=== PATIENT | female | born 1990 | race Caucasian/White ===

== ENCOUNTER 2021-11-18 17:01 | Emergency (ER) | payer BC, SELFPAY ==
--- NOTE | ~2021-11-18 | XR_ITS ---
EXAMINATION: XR chest 2V DATE: 11/18/2021 18:12 INDICATION: Chronic cough TECHNIQUE: frontal and lateral views of the chest were obtained. COMPARISON: None FINDINGS: The lungs are clear with no focal airspace opacities, pulmonary edema, pleural effusion or pneumothor ax. The cardiomediastinal silhouette is normal. Visualized bones and soft tissues are unremarkable. IMPRESSION: 1. No acute cardiopulmonary disease. Reviewed, dictated and finalized at location A.
[2021-11-18 17:20] VITALS: BP 149/76; PULSE 93; RESP 16; TEMP 36.8; O2SAT 100
--- NOTE | 2021-11-18 17:45 | ED.URI ---
HPI - URI/Sore Throat General Chief Complaint: Upper Respiratory Infection Stated Complaint: cough nasal pressure Time Seen by Provider: 11/18/21 17:45 Source: patient, RN notes reviewed and old records reviewed Mode of arrival: ambulatory Limitations: no limitations History of Present Illness HPI Narrative: 31-year-old female presents to [facility] with cough nasal pressure and runny nose for the past 2 months. Patient states she was seen 2 weeks ago and given Doxycycline and she completed dose without improvement in her symptoms. Patient denies any recent fevers, chills or sweats or any body aches,has had COVID immunizations. Patient had negative covid a week and half ago.Patient does not smoke but is exposed to secondary tobacco from spouse. MD elicited complaint: cough, rhinorrhea and sinus pain Onset (ago): month(s) (2) Pain scale (0-10): 2 Description of mucous: clear Able to tolerate fluids by mouth: Yes Treatments prior to arrival: other (Mucinex and Claritin) Related Data Allergies Allergy/AdvReac Type Severity Reaction Status Date / Time clindamycin Allergy Hives Verified 11/18/21 17:28 Review of Systems Review of Systems: CONSTITUTIONAL: Denies fever, chills, or sweats. EYES: Denies visual changes, redness, or discharge. ENT: Positive for rhinorrhea, congestion, no sore throat, or otalgia, sinus pressure CARDIOVASCULAR: Denies chest pain, palpitations, or edema. RESPIRATORY: Positive for cough denies dyspnea. GASTROINTESTINAL: Denies abdominal pain, nausea, vomiting, or diarrhea. GENITOURINARY: Denies dysuria or hematuria. SKIN: Denies rash or itching. MUSCULOSKELETAL: Denies back pain, joint pain, or myalgia. NEUROLOGIC: Denies headache, numbness, or weakness. PSYCHIATRIC: Denies anxiety or depression. All systems reviewed & are unremarkable except as noted in HPI and below PMFSH Social History Social History (Updated 11/22/21 @ 14:03 by Misti Seth NP) Smoking status: Never smoker Alcohol intake: current Alcohol use details: social Substance use type: does not use Living arrangements: with family Gender identity (if verbalized by the patient): Female Exam Narrative: GENERAL: Ill-appearing, well-nourished, and in no acute distress. HEAD: Normocephalic, atraumatic. EYES: PERRLA and EOMI. ENT: Nares pink with clear rhinorrhea no epistaxis. Mucous membranes moist.TM's normal with good light reflex, throat with mild redness no lesions or tonsil swelling, post nasal drainage noted NECK: Supple. no lymphadenopathy CHEST: clear on auscultation. No acute respiratory distress.SAO2 100 % on room air, no dyspnea or tachypnea noted, dry cough noted HEART: Regular rate and rhythm. No murmur heard. Normal peripheral pulses. ABDOMEN: Soft, nontender, nondistended, normal active bowel sounds. EXTREMITIES: Normal range of motion. No edema. SKIN: Warm, dry, no rash. NEURO: No focal deficits. Alert and oriented x3. Course Course Level of Care: Express Care Visit Vital Signs Vital signs: Vital Signs Temperature 36.8 C 11/18/21 17:20 Pulse Rate 93 11/18/21 17:20 Respiratory Rate 16 11/18/21 17:20 Blood Pressure 149/76 H 11/18/21 17:20 Pulse Oximetry 100 11/18/21 17:20 Oxygen Delivery Room Air 11/18/21 17:20 Temperature 36.8 C 11/18/21 17:20 Pulse Rate 93 11/18/21 17:20 Respiratory Rate 16 11/18/21 17:20 Blood Pressure 149/76 H 11/18/21 17:20 Pulse Oximetry 100 11/18/21 17:20 Oxygen Delivery Room Air 11/18/21 17:20 MDM - URI/Sore Throat Differential Diagnosis Differential diagnosis: Likely upper respiratory infection, sinusitis, viral infection, pharyngitis and other (allergic rhinitis) Medical Records Attestation: I reviewed the patient's medical records. Imaging Data Attestation: I personally reviewed and interpreted this imaging study as follows: My impression: normal chest x-ray Radiologist's impression: 11/18/2021 1812 2 view chest xray 1902 sign
--- NOTE | 2021-11-18 19:09 | ED_ITS ---
HPI - URI/Sore Throat General Chief Complaint: Upper Respiratory Infection Stated Complaint: cough nasal pressure Time Seen by Provider: 11/18/21 17:45 Source: patient, RN notes reviewed and old records reviewed Mode of arrival: ambulatory Limitations: no limitations History of Present Illness HPI Narrative: 2-week duration of increased symptoms of cough nasal congestion MD elicited complaint: cough, rhinorrhea and nasal congestion Able to tolerate fluids by mouth: Yes Related Data Allergies Allergy/AdvReac Type Severity Reaction Status Date / Time clindamycin Allergy Hives Verified 11/18/21 17:28 Course Course Level of Care: Express Care Visit Vital Signs Vital signs: Vital Signs Temperature 36.8 C 11/18/21 17:20 Pulse Rate 93 11/18/21 17:20 Respiratory Rate 16 11/18/21 17:20 Blood Pressure 149/76 H 11/18/21 17:20 Pulse Oximetry 100 11/18/21 17:20 Oxygen Delivery Room Air 11/18/21 17:20 Temperature 36.8 C 11/18/21 17:20 Pulse Rate 93 11/18/21 17:20 Respiratory Rate 16 11/18/21 17:20 Blood Pressure 149/76 H 11/18/21 17:20 Pulse Oximetry 100 11/18/21 17:20 Oxygen Delivery Room Air 11/18/21 17:20 MDM - URI/Sore Throat Differential Diagnosis Differential diagnosis: Likely upper respiratory infection, pharyngitis and other (allergic rhinitis) Medical Records Attestation: I reviewed the patient's medical records. Critical Care Time Critical Care Time Critical Care Time: No Discharge Plan Discharge Clinical Impression: Upper respiratory infection Patient Disposition: Home, Self-Care Condition: Stable Instructions: Upper Respiratory Infection (ED) Additional Instructions: Increase fluids especially juices and water [id number]-[id number] cough and cold medicine of your choice for your symptoms Singulair 1 tab daily Steroids as directed--take with food heat to the face 20-30 minutes 4-6 times a day for pain Salt water gargles, throat lozenges or throat sprays as desired Try to avoid exposure to secondhand tobacco was much as possible If your symptoms persist, change or worsen significantly before you can contact your personal physician then please, without delay, go to the emergency department for further evaluation. Follow-up with PCP in 7-10 days or sooner if needed Follow up with PCP soon in regards to your blood pressure which is elevated above threshold for referral. Blood pressure above 120/80 may indicate pre-hyp ertension. Prescriptions: New prednisone 20 mg tablet 20 mg PO BID Qty: 10 0RF montelukast [Singulair] 10 mg tablet 10 mg PO HS Qty: 30 0RF Follow-up/Referrals: Chrystal Gonzalez MD [Primary Care Provider] - Time of Disposition: 19:11 Quality [place] Coma Scale Eyes: Open Verbal: Oriented and Alert Motor: Follows Commands Chris Coma Total Score: 15
== END 2021-11-18 19:26 | disposition home or self-care (01) ==
PROVIDERS: Emergency Provider Registered Nurse; PCP Internal Medicine
DX: J06.9 Acute upper respiratory infection, unspecified (principal); Z77.22 Contact with and (suspected) exposure to environmental tobacco smoke (acute) (chronic)
CPT/HCPCS: 71046; 99213; G0463

== ENCOUNTER 2022-01-05 08:20 | Emergency (ER) | payer BC, SELFPAY ==
[2022-01-05 08:33] VITALS: BP 133/73; PULSE 71; RESP 16; TEMP 37.2; O2SAT 100
--- NOTE | 2022-01-05 08:58 | ED.WOUNDLAC ---
HPI - Wound/Laceration General Chief Complaint: Extremity Injury, Upper Stated Complaint: left thumb lac Time Seen by Provider: 01/05/22 08:58 Source: patient, RN notes reviewed and old records reviewed Mode of arrival: ambulatory Limitations: no limitations History of Present Illness HPI narrative: 31-year-old female presents to the [facility] with a laceration to her left thumb that occurred yesterday. Patient reports that she washed it with warm soapy water and put glue on it. Area underneath the glue is healing. Does have some inflammation and redness surrounding the area. Patient states she had her tetanus 2 years ago when she was bit by dogs. Has full range of motion of the palm. Sensation intact distal to injury with capillary refill under 2 seconds Patient tetanus UTD: Yes (2 years ago) Related Data Home Medications Medication Instructions Recorded Confirmed cyclobenzaprine 5 mg tablet 10 mg PO HS PRN Sleep 01/05/22 01/05/22 Allergies Allergy/AdvReac Type Severity Reaction Status Date / Time clindamycin Allergy Hives Verified 01/05/22 08:42 ibuprofen AdvReac Loss of Verified 01/05/22 08:43 Consciousness Review of Systems Review of Systems: All systems reviewed & are unremarkable except as noted in HPI and below Constitutional: Constitutional: Reports no additional constitutional complaints, Denies chills and Denies fever(s) Eyes: Eyes: Reports no additional eye complaints ENT: Reports system reviewed and no additional complaints, except as documented Cardiovascular: Cardiovascular: Reports no additional cardiovascular complaints Respiratory: Respiratory: Reports no additional respiratory complaints Gastrointestinal: Gastrointestinal: Reports no additional gastrointestinal complaints Musculoskeletal: Musculoskeletal: Reports no additional musculoskeletal complaints Integumentary/Breasts: Skin/Breast: Reports as per HPI Neurologic: Reports system reviewed and no additional complaints, except as documented Psychiatric: Psychiatric: Reports no additional psychiatric complaints Allergic/Immunologic: Allergic/Immunologic: Reports no additional allergic/immunologic complaints [facility] Social History Social History Smoking status: Never smoker Alcohol intake: current Alcohol use details: social Substance use type: does not use Gender identity (if verbalized by the patient): Female Comments At the time of my signature, I reviewed and agree with the nursing past medical, surgical, social, and family history. There is no relevant family history pertinent to the patient complaint. Exam Const: General: healthy appearing, comfortable, no acute distress, well developed, alert and well nourished Nutritional Appearance: well nourished Orientation/consciousness: patient oriented x3 Limitations: no limitations HENMT: Head: normal to inspection Ears: external ears normal Eyes: General: appearance normal, both eyes and all related structures Pupils: Equal, round and reactive pupils present Neck: Neck: normal visual inspection, full ROM, no lymphadenopathy and no meningeal signs Chest: Chest palpation & inspection: normal inspection of the chest Resp: Effort & Inspection: normal respiratory effort and no use of accessory muscles Auscultation: clear to auscultation bilaterally, no crackles, no rales, no rhonchi and no wheezes Cardio: Rate: regular rate Rhythm: regular rhythm GI: GI Palp: Yes Soft to palpation and No Tenderness to palpation present (GI) Back/Spine/Pelvis: Cervical Spine: cervical ROM normal and No Cervical spine tenderness Thoracic/Lumbar Spine: thoracic and lumbar spine normal to inspection and thoraco-lumbar ROM normal Skin: General skin exam: normal color Rashes: no rashes Wounds: no wounds Other: to not cm laceration, healing, surrounding erythema, not circumferential. Glue on top. Neuro: General: pat
== END 2022-01-05 09:10 | disposition home or self-care (01) ==
PROVIDERS: Emergency Provider Nurse Practitioner; PCP Internal Medicine
DX: S61.012A Laceration without foreign body of left thumb without damage to nail, initial encounter (principal); X58.XXXA Exposure to other specified factors, initial encounter
CPT/HCPCS: 99213; G0463

== ENCOUNTER 2022-05-28 13:35 | Emergency (ER) | payer BC, SELFPAY ==
[2022-05-28 13:40] VITALS: BP 138/64; PULSE 71; RESP 16; TEMP 37.3; O2SAT 100
--- NOTE | 2022-05-28 13:57 | ED.URI ---
HPI - URI/Sore Throat General Chief Complaint: Upper Respiratory Infection Stated Complaint: sore throat and chest pains Source: patient and RN notes reviewed History of Present Illness HPI Narrative: 31 yo F presents to urgent care with complaints of left sided chest pressure/congestion x 2 days. Pt reports a productive cough and states when she coughs anything up, it is clear in color. Pt reports her symptoms worse at nighttime. Pt also reports a dry throat and chronic congestion and runny nose. Denies any sore throat, chest pain, dizziness, vomiting, ear pain, or abdominal pain. Pt has been taking an allergy pill daily for several months. Related Data Home Medications Medication Instructions Recorded Confirmed Heart Burn Pill 05/28/22 multivit with minerals-iron 18 tablet PO 05/28/22 05/28/22 mg-folic ac 400 mcg-vit K 25 mcg tablet (Adults Multivitamin) Allergies Allergy/AdvReac Type Severity Reaction Status Date / Time clindamycin Allergy Hives Verified 05/28/22 13:52 Sulfa (Sulfonamide Allergy Unknown Verified 05/28/22 13:53 Antibiotics) ibuprofen AdvReac Loss of Verified 05/28/22 13:52 Consciousness Review of Systems Review of Systems: Pertinent positives and pertinent negatives per HPI. [facility] Social History Social History Smoking status: Never smoker Alcohol intake: current Alcohol use details: social Substance use type: does not use Living arrangements: with family Gender identity (if verbalized by the patient): Female Comments At the time of my signature, I reviewed and agree with the nursing past medical, surgical, social, and family history. There is no relevant family history pertinent to the patient complaint. Exam Narrative: GENERAL: This is a well-nourished, well-developed patient, in no apparent distress. HEAD: normocephalic, atraumatic. EYES: Sclera clear/white. Vision is grossly intact. EARS: External ears normal, auditory canals clear and without drainage. Hearing grossly intact. NOSE: External nose normal with no obvious nasal discharge, nares without redness, no rhinorrhea. THROAT: Mucous membranes moist, posterior pharynx clear. NECK: Neck supple, non-tender without lymphadenopathy, masses or thyromegaly. CARDIOVASCULAR: Regular rate and rhythm without murmurs, gallops, or rubs. RESPIRATORY: Mild wheeze noted in RLL on auscultation. SKIN: warm, intact with no suspicious lesions or rash, good texture and turgor. NEURO: awake, alert, and oriented to person, place and time. There were no obvious focal neurologic abnormalities. Course Course Level of Care: Express Care Visit Vital Signs Vital signs: Vital Signs Temperature 99.2 F 05/28/22 13:40 Pulse Rate 71 05/28/22 13:40 Respiratory Rate 16 05/28/22 13:40 Blood Pressure 138/64 05/28/22 13:40 Pulse Oximetry 100 05/28/22 13:40 Oxygen Delivery Room Air 05/28/22 13:40 Temperature 99.2 F 05/28/22 13:40 Pulse Rate 71 05/28/22 13:40 Respiratory Rate 16 05/28/22 13:40 Blood Pressure 138/64 05/28/22 13:40 Pulse Oximetry 100 05/28/22 13:40 Oxygen Delivery Room Air 05/28/22 13:40 reviewed MDM - URI/Sore Throat MDM Narrative Medical decision making narrative: Take steroids as directed. May use the inhaler every 4-6 hours as needed for coughing. Increase fluids at home. Avoid any and all smoke. May use a humidifier in the bedroom. Increase your Vitamin C. Follow-up with personal physician in 2-5 days. Go to the emergency department with any new or worsening symptoms or if your symptoms do not improve in 24 hours. Differential Diagnosis Differential diagnosis: Likely upper respiratory infection, viral infection and bronchitis Critical Care Time Critical Care Time Critical Care Time: No Discharge Plan Discharge Clinical Impression: Bronchitis Patient Disposition: Home, Self-Care Condition
== END 2022-05-28 14:05 | disposition home or self-care (01) ==
PROVIDERS: Emergency Provider Nurse Practitioner Family; PCP Internal Medicine
DX: J40 Bronchitis, not specified as acute or chronic (principal); K21.9 Gastro-esophageal reflux disease without esophagitis
CPT/HCPCS: 99213; G0463

== ENCOUNTER 2022-08-20 00:16 | Day surgery (SDC) | payer BC, SELFPAY ==
--- NOTE | 2022-08-13 15:35 | PC.NURSE ---
Report to the Outpatient Waiting Room, entrance under the green pavilion located off [facility], at time 0800 on date 08/20/22. Planned Procedure Time: 1000. Time changes happen often and if your time is changed the preop area will call you the afternoon before. - You and your visitor will be asked to self-screen and do not enter if you have any COVID symptoms. - A mask is optional within the hospital at this time. Patients may have clear liquids (water, carbonated beverages, clear teas, apple juice) until 3 hours prior to surgery with a maximum of 20 ounces. 0700 - No food from midnight until time of surgery - Infants may have breast milk until 4 hours before surgery, formula 6 hours prior to surgery. - Children will be allowed to drink immediately following surgery. If applicable, please bring a bottle or sippy cup to assist with drinking. Juice, water, soda, and popsicles are readily available. For infants on formula, please bring formula the day of surgery. Pacifiers are allowed. Take the following medications with a SIP of water the morning of surgery: none DO NOT STOP ANY OF YOUR OTHER PRESCRIPTION MEDICATIONS PRIOR TO SURGERY ?EXCEPT THE FOLLOWING Medications to discontinue per physician vitamins & supplements Date to take last dose 08/17/22 Please no make-up, nail ivorian, hairspray, perfume, deodorant, or body powder the day of surgery. No jewelry (including any body piercings) or valuables the day of surgery, leave them at home. Please take a shower or bath the night before, or the morning of, surgery with an antibacterial soap. Wear comfortable, loose fitting clothing. Children are encouraged to wear pajamas. - Jewelry must be removed prior to entering the operating room. Rings and piercings that are not removed may be cut off. - The hospital will not accept responsibility for valuables. - Please leave all valuables, including medications, at home the day of surgery. If you are going home after surgery, a licensed mechanic driver must drive you home. - NO public transportation without another adult if you receive anesthesia. - We recommend that an adult stay with you for 24 hours following discharge. - We also recommend that you do not drive, make important decision, drink alcoholic beverages, or take any drugs that were not prescribed by your health care provider for at least 24 hours after your discharge time. For Pediatric surgeries, we recommend two adults accompany the child home. Follow any additional instructions given to you from your surgeon. If you or anyone in your household have experienced Covid symptoms in the past week, please notify your surgeon or the nurse liaison at the phone number below for possible testing. Telephone instructions given to Nadeen Mora and asked if any additional questions and then verbalized understanding. Patient advised to call surgeon office or pre surgery nurse liaison [phone] if any additional questions.
[2022-08-13 15:40] VITALS: BMI 25.1
[2022-08-20] MEDS: LACTATED RINGERS 1,000 ML 30 ML IV CONT (08:05)
[2022-08-20 08:16] LABS: Hematocrit 43.1 % (37.0-47.0); Hemoglobin 14.2 g/dL (12.0-15.0)
[2022-08-20] MEDS: ACETAMINOPHEN 500 MG TABLET 1000 MG PO (08:16)
[2022-08-20 08:20] VITALS: BP 123/81; PULSE 73; RESP 16; TEMP 36.9; O2SAT 100
--- NOTE | 2022-08-20 08:52 | WPDANESEPPF ---
Anes - Initial Pre Proc Eval Procedure: Operation Date: 08/20/22 10:00 Proposed Procedures p Hysteroscopy, Biopsy of Endometrium and/or Polypectomy - Cher Yang MD Date/Time: 08/20/22 08:52 Surgeon: Cher Yang MD Pre Op Diagnosis: endocervical polyp Patient Data Age: 32 Gender: F Height: 1.66 m Weight: 67.2 kg Last Vital Signs Temp 36.9 C 08/20/22 08:20 Pulse 73 08/20/22 08:20 Resp 16 08/20/22 08:20 BP 123/81 08/20/22 08:20 Pulse Ox 100 08/20/22 08:20 O2 Del Method Room Air 08/20/22 08:20 Allergies Allergy/AdvReac Type Severity Reaction Status Date / Time clindamycin Allergy Hives Verified 08/20/22 07:45 Sulfa (Sulfonamide Allergy Hives Verified 08/20/22 07:45 Antibiotics) ibuprofen AdvReac Loss of Verified 08/20/22 07:45 Consciousness Home Medications Medication Instructions Recorded Confirmed Type multivit with minerals-iron 18 1 tablet PO DAILY 05/28/22 08/13/22 History mg-folic ac 400 mcg-vit K 25 mcg tablet (Adults Multivitamin) B [id number] 1 tab-cap PO DAILY 08/13/22 08/13/22 History cyclobenzaprine 5 mg tablet 5 mg TID PRN Muscle Spasm 08/13/22 08/13/22 History ferrous sulfate 325 mg (65 mg 65 mg PO DAILY 08/13/22 08/13/22 History iron) capsule,extended release glucosamine sulfate 500 mg tablet 500 mg PO DAILY 08/13/22 08/13/22 History (Glucosamine) Laboratory Tests 08/20/22 08:11 Hgb 14.2 g/dL (12.0-15.0) Hct 43.1 % (37.0-47.0) Patient hx anesthesia problems: none Family hx anesthesia problems: none Results Review: All pre-operative results and documents have been reviewed as part of the pre-operative evaluation. [facility] Social History Social History Smoking status: Never smoker Alcohol intake: current Drinks per week: 1 Alcohol use details: social Substance use: current Substance use type: marijuana Other substance usage details: last use 08/13/22 Living arrangements: with family Gender identity (if verbalized by the patient): Female Spiritual care concerns: No Anes - Eval Final PreProcedure Day of Procedure 08/20/22 08:52 Patient weight: normal Heart: regular rate and rhythm Lungs: clear to auscultation and normal air movement Airway: Mallampati scale class II Neurological: alert and oriented Last oral intake: >/= 8 hours ASA classification: II Emergent: no Anesthetic plan: proceed Anesthesia type and monitoring: general GIVS and standard monitoring Results Review: All pre-operative results and documents have been reviewed as part of the pre-operative evaluation. Informed Consent: The patient's anesthetic plan and its attendant risks and benefits were discussed with the patient/family/POA. Questions were solicited and answers provided to the satisfaction of the patient/family/POA.
--- NOTE | 2022-08-20 09:09 | WPDHPUPDATE1 ---
History and Physical Update Update Date/Time: 08/20/22 09:09 History and Physical has been reviewed, including an updated exam of the patient. There are NO changes in the patient's condition. Risks, benefits, and alternatives have been discussed and questions answered. Patient agrees to proceed with procedure.
[2022-08-20] MEDS: LIDOCAINE HCL 1% PF INJ 5 ML VIAL 10 ML INFILTRATE (09:58)
[2022-08-20 10:11] VITALS: BP 117/75; PULSE 81; RESP 16; O2SAT 100
--- NOTE | 2022-08-20 10:12 | W.PM.PROC2 ---
Procedure Note - Detailed Date of Procedure 08/20/22 Pre-op Diagnosis endocervical polyp Post-op Diagnosis Same ( normal cervix) Procedure Performed Hysteroscopy, and endocervical curettage Surgeon Cher Yang MD Anesthesia MAC Indications abnormal uterine bleeding Findings endocervix has exaggerated rugate a, a variation of normal, normal endometrium, normal vulva, vagina and cervix. Description of Procedure the patient was taken the operating room. She was prepped and draped in the dorsal lithotomy position after induction of mac anesthesia. A speculum was placed in the vagina. The cervix was grasped with a tenaculum. The cervix was dilated about 1 cm. The hysteroscope was inserted. The intrauterine cavity and endocervix were evaluated. Hysteroscope was withdrawn. A small-size curette was used to curettage all the surfaces were within the Endocervix. the sample was collected on Telfa and sent to pathology. The hysteroscope was reinserted and the above findings were noted. Patient tolerated the procedure well. The speculum and tenaculum were removed. She was taken recovery room in stable condition. Sponge lap and needle counts were correct x2. Estimated Blood Loss 5 Drains No Packing No Pathology Yes Complications No immediate complications Condition Stable Disposition PACU
[2022-08-20 10:15] VITALS: BP 105/65; PULSE 65; RESP 15; O2SAT 99
[2022-08-20 10:30] VITALS: BP 117/74; PULSE 66; RESP 17
[2022-08-20 10:45] VITALS: BP 114/76; PULSE 65; RESP 15
== END 2022-08-20 11:01 | disposition home or self-care (01) ==
PROVIDERS: Anesthesiology; PCP Internal Medicine; Visit Provider Obstetrics & Gynecology
PROC: 0U5B8ZZ Destruction of Endometrium, Via Natural or Artificial Opening Endoscopic (ICD-10-PCS; CPT 58563; principal; 2022-08-20 10:00)
DX: N88.8 Other specified noninflammatory disorders of cervix uteri (principal); F12.90 Cannabis use, unspecified, uncomplicated
CPT/HCPCS: 58558; 36415; 85014; 85018; 88305; A9270; J2250; J2704; J3010; J7120